=== PATIENT | female | born 1965 | race Caucasian/White ===

== ENCOUNTER 2020-01-29 13:37 | Inpatient (IN) | payer OTHER ==
[~2020-01-29] VITALS: Ht 160 cm; Wt 132.4 kg
[2020-01-29] MEDS ORDERED: LOTREL 10-20 M1 EACH (14:09)
== END 2020-02-03 10:57 | disposition home or self-care (01) | DRG 920 ==
LOC: ER 13:37 → SEC-K 21:08 → SURG 23:33
PROVIDERS: ADMIT Internal Medicine; ATTEND Internal Medicine
PROC: BW21ZZZ Computerized Tomography (CT Scan) of Abdomen and Pelvis (ICD-10-PCS; principal; 2020-01-29)
DX: T81.31XA Disruption of external operation (surgical) wound, not elsewhere classified, initial encounter (principal); N39.0 Urinary tract infection, site not specified; T81.49XA Infection following a procedure, other surgical site, initial encounter; Y83.8 Other surgical procedures as the cause of abnormal reaction of the patient, or of later complication, without mention of misadventure at the time of the procedure; I10 Essential (primary) hypertension; E66.01 Morbid (severe) obesity due to excess calories; F41.1 Generalized anxiety disorder; Z20.828 Contact with and (suspected) exposure to other viral communicable diseases; B95.61 Methicillin susceptible Staphylococcus aureus infection as the cause of diseases classified elsewhere